=== PATIENT | male | born 1990 | race American Indian/Alaskan Native ===

== ENCOUNTER 2017-03-30 01:46 | Observation (INO) | payer MEDICAID ==
[2017-03-30] MEDS ORDERED: Sodium Chloride 0.9% 1,000 ML IV ONE ×2 (02:09→02:13)
[2017-03-30] MEDS ORDERED: DiphenhydrAMINE 50 mg/ml Inj IVP STA (02:15)
[2017-03-30] MEDS ORDERED: DiphenhydrAMINE 50 mg/ml Inj ONE (02:21)
[2017-03-30] MEDS ORDERED: Sodium Chloride 0.9% 2,000 ML ONE (02:44)
[2017-03-30 03:14] LABS: BASO # 0.2 K/uL (0.0-0.2); BASO % 1.3 % (0.0-2.0); EOS # 0.4 K/uL (0.0-0.7); EOS % 3.3 % (0.0-4.0); HEMOGLOBIN 8.4 g/dL (12.0-18.0); LYMPH # 5.4 K/uL (1.0-4.3); LYMPH % 44.2 % (20.0-40.0); MEAN CELL VOLUME 94.2 fL (80.0-94.0); MEAN CORPUSCULAR HEMOGLOBIN 33.7 pg (27.0-31.0); MEAN CORPUSCULAR HGB CONC 35.8 g/dL (33.0-37.0); MEAN PLATELET VOLUME 7.8 fL (7.2-11.7); MONO # 0.8 K/uL (0.0-0.8); MONO % 6.4 % (0.0-10.0); NEUT # 5.4 K/uL (1.8-7.0); NEUT % 44.8 % (50.0-75.0); NRBC % 0.4 % (0.0-2.0); RBC 2.5 Mil/uL (4.40-5.90); RED CELL DISTRIBUTION WIDTH 21.8 % (11.5-14.5); WHITE BLOOD COUNT 12.1 K/uL (4.8-10.8)
[2017-03-30 03:16] LABS: INR 1.1; PROTHROMBIN TIME 12.6 SECONDS (9.7-12.2)
[2017-03-30 03:18] LABS: ALBUMIN 4.1 g/dL (3.5-5.0)
[2017-03-30 03:21] LABS: ALB/GLOB RATIO 1.3 (1.0-2.1); ALT/SGPT 28 U/L (21-72); AST/SGOT 36 U/L (17-59); BLOOD UREA NITROGEN 11 mg/dL (9-20); CALCIUM 8.9 mg/dl (8.6-10.4); GFR AFRICAN-AMERICAN > 60; GFR NON-AFRICAN AMERICAN > 60
[2017-03-30 03:34] LABS: B-TYPE NATRIURETIC PEPTIDE 228 pg/mL (0-450)
--- NOTE | 2017-03-30 04:27 | C.PDOC ---
History Of Present Illness c/o typical sickle cell pain, back and thighs no pain meds @ home no pmd local Time Seen by Provider: 03/30/17 02:11 Chief Complaint (Nursing): Back Pain History Per: Patient History/Exam Limitations: no limitations Onset/Duration Of Symptoms: Days (x2) Current Symptoms Are (Timing): Still Present Quality Of Discomfort: Aching, "Pain" Severity: Moderate Pain Scale Rating Of: 7 Previous Symptoms: Back Pain, Other (thighs) Recent travel outside of the [place]: No Past Medical History Reviewed: Historical Data, Nursing Documentation, Vital Signs Vital Signs: Last Vital Signs Temp 97.7 F 03/30/17 01:48 Pulse 46 L 03/30/17 02:59 Resp 20 03/30/17 02:59 BP 111/60 03/30/17 02:59 Pulse Ox 100 03/30/17 02:59 - Medical History PMH: Sickle Cell Disease Surgical History: No Surg Hx Family History: States: Unknown Family Hx - Social History Hx Tobacco Use: Yes (some days) Hx Alcohol Use: Yes (social) Hx Substance Use: No - Immunization History Hx Tetanus Toxoid Vaccination: Yes Hx Influenza Vaccination: No Hx Pneumococcal Vaccination: No Review Of Systems Except As Marked, All Systems Reviewed And Found Negative. Physical Exam - Physical Exam Appears: In Acute Distress Skin: Normal Color, Other (pallid) Head: Atraumatic Eye(s): bilateral: Normal Inspection Throat: Normal Chest: Symmetrical Cardiovascular: Rhythm Regular Gastrointestinal/Abdominal: Normal Exam Rectal: Deferred Extremity: Normal ROM ED Course And Treatment - Laboratory Results Result Diagrams: 03/30/17 03:07 03/30/17 03:07 Lab Interpretation: Abnormal (basline labs and retic count 8.5) ECG: Interpreted By Me ECG Rhythm: Sinus Rhythm ECG Interpretation: Normal Rate From EC O2 Sat by Pulse Oximetry: 100 Pulse Ox Interpretation: Normal - Radiology CXR: Interpreted by Me CXR Interpretation: Yes: No Acute Disease Progress Note: 0215: one round of PO dilaudid, benadryl, motrin, reglan. 0315: sleeping comfortably Reevaluation Time: 04:30 Reassessment Condition: Improved (sleeping comfortably) - Physician Consult Information Outcome Of Conversation: 0430: communicated with Dr. Long- [employer] Operator- ok to med/Surg obs. Medical Decision Making Medical Decision Making: unclear why lost to f/u and no pain meds @ home [place], [place] Rx's for this pt though relieved pain with 1st round of pain meds, and labs @ baseline, pt should obs for further eval and proper dispo with proper f/u with PMD or Dr. Long- [employer] Operator. 0430: pending UA/UDS Disposition Doctor Will See Patient In The: Hospital Counseled Patient/Family Regarding: Studies Performed, Diagnosis - Disposition Referrals: Non [facility] Provider, [Primary Care Provider] - Disposition: HOSPITALIZED Disposition Time: 04:29 Condition: GOOD Forms: [facility] (Kosovan) - Clinical Impression Clinical Impression: Sickle cell anemia with crisis
--- NOTE | 2017-03-30 06:13 | PCM.RRTMUL ---
[employer] Nurses Assessment - Situation [employer] Reason for Call: Bradycardia, Hypotension CRACK[employer] MIXER Called By: RN - IV IV Inserted during CRACKER DOUGH MIXER?: No IV Fluids Initiated During CRACKER DOUGH MIXER?: Yes 1 L fluid bolus - Respiratory Oxygen Delivery Method:: Room Air (Patient refused oxygen via nasal canula ) Received Nebulizer Treatments:: No Was the Patient Ventilated with Bag/Mask 100% O2?: No Secretions Suctioned?: No Was the Patient Intubated?: No Was the Patient Placed on a Ventilator?: No - Diagnostic Test Ordered EKG:: Yes - Vital Signs Blood Pressure:: 107/54 Pulse Rate:: 48 Respiratory Rate:: 18 Temperature:: 97.5 F Oxygen Saturation:: 95 - Recommendations 5) CR[employer] M[employer]ER Level of Care Recommendations: Remain in current setting 6) Notifications: Attending Physician I.Reason for [employer]IXER - A) Acute Change in Patient: (Select all that apply): Staff member or family is worried about patient - A) Initial Vital Signs: Blood Pressure: 86/47 Pulse Rate: 40 Temperature: 97.5 F O2 Sat by Pulse Oximetry: 95 - B) Neurological Status (Select all that apply): Alert, Responsive, Follows Commands Other (Please specify): Agitated - C) Respiratory Oxygen Delivery Method: Room Air - Constitutional Appears: Non-toxic, No Acute Distress - Head Head Exam: ATRAUMATIC, NORMAL INSPECTION, NORMOCEPHALIC - Eyes Eye Exam: EOMI, Normal appearance - Respiratory Exam Respiratory Exam: NORMAL BREATHING PATTERN. absent: Wheezes - Cardiovascular Exam Cardiovascular Exam: Bradycardia, +S1, +S2 - GI/Abdominal Exam GI & Abdominal Exam: Soft, Normal Bowel Sounds - Neurological Exam Neurological Exam: Alert, Awake, Oriented x3 - Extremities Exam Extremities Exam: Full ROM Plan - A. End of [employer] MIXER Vital Signs: Blood Pressure: 99/58 Pulse Rate: 49 Temperature: 97.5 F O2 Sat by Pulse Oximetry: 96 - B. Assessment of Findings&Treatment Plan Rapid response called at 5:52AM for patient with hypotension and bradycardia. Patient arrived from ED minutes prior with complaints of back pain and leg pain secondary to sickle cell crises. Patient was administered 16mg of Dilaudid PO as well as reglan, 2 fluid boluses, benadryl and Motrin in the ED. Patient was then transferred up to the floor. Patient was noted to have the vitals mentioned above upon initial arrival on the floor. Patient remained awake, alert and oriented, however agitated. Repeat EKG was ordered. ALDEN was ordered in the ED a few hours prior and thus a repeat level was not ordered. Patient was administered a fluid bolus. At this time, it was requested that patient be placed on telemetry. A call was placed out to Dr. Long (Admitting doctor) with considerations for a Cardiology consult. Patient remained responsive throughout , though mildly agitated.
[2017-03-30] MEDS ORDERED: Sodium Chloride 0.9% 1,000 ML IV SCH ×3 (06:15→08:35)
--- NOTE | 2017-03-30 09:04 | RAD ---
PROCEDURE: CHEST RADIOGRAPH, 1 VIEW HISTORY: Shortness of breath COMPARISON: None available. FINDINGS: LUNGS: Diffuse increased interstitial lung markings. More patchy linear consolidative changes in the right midlung zone. PLEURA: No pneumothorax or pleural fluid seen. CARDIOVASCULAR: Mild cardiomegaly. OSSEOUS STRUCTURES: Patchy sclerosis which may represent underlying AVN of the bilateral proximal humeri. VISUALIZED UPPER ABDOMEN: Normal. OTHER FINDINGS: None. IMPRESSION: Diffuse increased interstitial lung markings. More patchy linear consolidative changes in the right midlung zone.
--- NOTE | 2017-03-30 10:52 | CARD ---
APPROVED REPORT EKG Measurement Heart [id number] 166P12 [id number] <Conclusion> Sinus bradycardia Otherwise normal ECG
[2017-03-30] MEDS: Sodium Chloride 0.9% 1,000 ML IV SCH ×2 (17:30→21:27)
--- NOTE | 2017-03-30 18:05 | CON ---
DATE: 03/30/2017 CARDIOLOGY CONSULTATION REASON FOR CONSULTATION: Sinus bradycardia. HISTORY OF PRESENT ILLNESS: The patient is 26 years old athletic, male, who has a history of sickle cell disease. He used to have sickle cell crisis in his childhood required blood transfusion as a child, but as a young adult, the patient has been doing okay, probably gets crisis once a year according to him. He presents because of bilateral leg pain. He denies any chest pain. The patient was noted too bradycardic on admission, the lowest heart rate on by the EMS was 37 beats per minute. The patient states that he has bradycardia from before and he does athletic activities including basketball and running. He has no limitation since his childhood from any physical activity. SOCIAL HISTORY: The patient is nonsmoker, nondrinker. He is currently unemployed. MEDICATIONS: Benadryl 25 mg p.o. q. 6 hours, normal saline 100 mL an hour, Dilaudid 2 mg p.o. q. 4 hours p.r.n. PHYSICAL EXAMINATION: GENERAL: The patient is a young middle-aged male, who does not appear to any distress. VITAL SIGNS: Blood pressure , heart rate 41, temperature 97.5, respirations 20. HEENT: Pale conjunctivae. CHEST: Clear. HEART: S1, S2 regular. EXTREMITIES: No edema. LABORATORY DATA: The patient is in normal limits except for carbon dioxide of 21 and anion gap of 21, 1 set of troponin is negative. TSH level is elevated at 6.81, INR is 1.1, PTT is 31. Hemoglobin and hematocrit 8.4 and 23.5, white count 12.1, platelet count 312,000. EKG revealed sinus bradycardia at the rate of 50. EKG from 05/2016 reveals sinus bradycardia at the rate of 55. EKG from 02/2015 reveals sinus bradycardia at the rate of 49. ASSESSMENT: 1. Sickle cell crisis with bilateral leg pain. 2. Asymptomatic sinus bradycardia, most likely related to the patient's athletic lifestyle. RECOMMENDATIONS: Continue current IV hydration as well as p.r.n. Dilaudid. Obtain free T4 and total T4 level to rule out possibility of hypothyroidism as the TSH level is mildly elevated. Obtain an echocardiogram. Juma Davies MD [facility] # [id number]
[2017-03-30 20:05] VITALS: RESP 20
--- NOTE | 2017-03-30 23:30 | CP.PCM.HP ---
History of Present Illness - History of Present Illness History of Present Illness: 26 Y/O WITH SCD AND HE IS ADMITTED WITH BACK AND NECK PAIN, NO COUGH, NO FEVER, NO SOB Present on Admission - Present on Admission Any Indicators Present on Admission: No History of DVT/PE: No History of Uncontrolled Diabetes: No Urinary Catheter: No Decubitus Ulcer Present: No Review of Systems - Review of Systems Systems not reviewed;Unavailable: Acuity of Condition - Constitutional Constitutional: Daytime Sleepiness - Cardiovascular Cardiovascular: Slow Heart Rate Past Patient History - Infectious Disease Hx of Infectious Diseases: None - Past Medical History & Family History Past Medical History?: Yes - Past Social History Smoking Status: Current Some Days Smoker - CARDIAC Hx Cardiac Disorders: Yes Other/Comment: bradycardia - PULMONARY Hx Respiratory Disorders: No - NEUROLOGICAL Hx Neurological Disorder: No - HEENT Hx HEENT Problems: No - ENDOCRINE/METABOLIC Hx Endocrine Disorders: No - HEMATOLOGICAL/ONCOLOGICAL Hx Sickle Cell Disease: Yes - INTEGUMENTARY Hx Dermatological Problems: No - MUSCULOSKELETAL/RHEUMATOLOGICAL Hx Falls: No - GASTROINTESTINAL Hx Gastrointestinal Disorders: No - GENITOURINARY/GYNECOLOGICAL Hx Genitourinary Disorders: No - PSYCHIATRIC Hx Substance Use: No - SURGICAL HISTORY Hx Surgeries: No - ANESTHESIA Hx Anesthesia: No Meds Allergies/Adverse Reactions: Allergies Allergy/AdvReac Type Severity Reaction Status Date / Time No Known Allergies Allergy Unverified 03/30/17 01:47 Physical Exam - Constitutional Appears: Non-toxic, No Acute Distress - Head Exam Head Exam: ATRAUMATIC, NORMAL INSPECTION, NORMOCEPHALIC - Eye Exam Eye Exam: EOMI, Normal appearance, PERRL Pupil Exam: NORMAL ACCOMODATION - ENT Exam ENT Exam: Mucous Membranes Moist, Normal Exam - Neck Exam Neck exam: Positive for: Normal Inspection - Respiratory Exam Respiratory Exam: Clear to Auscultation Bilateral, NORMAL BREATHING PATTERN - Cardiovascular Exam Cardiovascular Exam: Bradycardia, REGULAR RHYTHM, +S1, +S2 - GI/Abdominal Exam GI & Abdominal Exam: Normal Bowel Sounds - Rectal Exam Rectal Exam: NORMAL INSPECTION - Exam Exam: NORMAL INSPECTION - Extremities Exam Extremities exam: Positive for: normal inspection - Back Exam Back exam: NORMAL INSPECTION - Neurological Exam Neurological exam: Alert, CN II-XII Intact, Normal Gait, Oriented x3, Reflexes Normal Results - Vital Signs Recent Vital Signs: Last Vital Signs Temp 98.2 F 03/30/17 20:04 Pulse 45 L 03/30/17 20:04 Resp 20 03/30/17 20:04 BP 102/54 L 03/30/17 20:04 Pulse Ox 97 03/30/17 20:04 - Labs Result Diagrams: 03/30/17 03:07 03/30/17 03:07 Assessment & Plan (1) Bradycardia Status: Acute Priority: High (2) Dehydration Status: Acute Priority: High (3) Sickle cell anemia with crisis Status: Acute Priority: High
[2017-03-31 01:49] VITALS: BP 108/60; PULSE 49; TEMP 98.4; O2SAT 98
--- NOTE | 2017-03-31 23:54 | CP.PCM.DIS ---
Provider - Provider Date of Admission: 03/30/17 04:23 Attending physician: Jt Long MD Primary care physician: Non [facility] Provider Diagnosis - Discharge Diagnosis (1) Bradycardia Status: Acute Priority: High (2) Dehydration Status: Acute Priority: High (3) Sickle cell anemia with crisis Status: Acute Priority: High Hospital Course - Lab Results Lab Results: Most Recent Lab Values WBC 12.1 K/uL (4.8-10.8) H 03/30/17 03:07 RBC 2.50 Mil/uL (4.40-5.90) L 03/30/17 03:07 Hgb 8.4 g/dL (12.0-18.0) L 03/30/17 03:07 Hct 23.5 % (35.0-51.0) L 03/30/17 03:07 MCV 94.2 fL (80.0-94.0) H 03/30/17 03:07 MCH 33.7 pg (27.0-31.0) H 03/30/17 03:07 MCHC 35.8 g/dL (33.0-37.0) 03/30/17 03:07 RDW 21.8 % (11.5-14.5) H 03/30/17 03:07 Plt Count 312 K/uL (130-400) 03/30/17 03:07 MPV 7.8 fL (7.2-11.7) 03/30/17 03:07 Neut % (Auto) 44.8 % (50.0-75.0) L 03/30/17 03:07 Lymph % (Auto) 44.2 % (20.0-40.0) H 03/30/17 03:07 [place] % (Auto) 6.4 % (0.0-10.0) 03/30/17 03:07 Eos % (Auto) 3.3 % (0.0-4.0) 03/30/17 03:07 Baso % (Auto) 1.3 % (0.0-2.0) 03/30/17 03:07 Neut # 5.4 K/uL (1.8-7.0) 03/30/17 03:07 Lymph # 5.4 K/uL (1.0-4.3) H 03/30/17 03:07 [place] # 0.8 K/uL (0.0-0.8) 03/30/17 03:07 Eos # 0.4 K/uL (0.0-0.7) 03/30/17 03:07 Baso # 0.2 K/uL (0.0-0.2) 03/30/17 03:07 Retic Count 8.5 % (0.5-1.5) H D 03/30/17 03:07 PT 12.6 SECONDS (9.7-12.2) H 03/30/17 03:07 INR 1.1 03/30/17 03:07 APTT 31 SECONDS (21-34) 03/30/17 03:07 Sodium 142 mmol/L (132-148) 03/30/17 03:07 Potassium 3.6 mmol/L (3.6-5.2) 03/30/17 03:07 Chloride 104 mmol/L (98-107) 03/30/17 03:07 Carbon Dioxide 21 mmol/L (22-30) L 03/30/17 03:07 Anion Gap 21 (10-20) H 03/30/17 03:07 BUN 11 mg/dL (9-20) 03/30/17 03:07 Creatinine 0.8 MG/DL (0.8-1.5) 03/30/17 03:07 Est GFR ( Amer) > 60 03/30/17 03:07 Est GFR (Non-Af Amer) > 60 03/30/17 03:07 Random Glucose 86 mg/dL (75-110) 03/30/17 03:07 Calcium 8.9 mg/dl (8.6-10.4) 03/30/17 03:07 Total Bilirubin 2.2 mg/dL (0.2-1.3) H 03/30/17 03:07 AST 36 U/L (17-59) 03/30/17 03:07 ALT 28 U/L (21-72) 03/30/17 03:07 Alkaline Phosphatase 79 U/L (38-126) 03/30/17 03:07 Troponin I < 0.0120 ng/mL (0.00-0.120) 03/30/17 03:07 NT-Pro-B Natriuret Pep 228 pg/mL (0-450) 03/30/17 03:07 Total Protein 7.3 g/dL (6.3-8.3) 03/30/17 03:07 Albumin 4.1 g/dL (3.5-5.0) 03/30/17 03:07 Globulin 3.1 gm/dL (2.2-3.9) 03/30/17 03:07 Albumin/Globulin Ratio 1.3 (1.0-2.1) 03/30/17 03:07 TSH 3rd Generation 6.81 mIU/L (0.46-4.68) H 03/30/17 03:07 - Hospital Course Hospital Course: ADMITTED WITH SCD AND PAIN, AND HE DID WELL WITH IVF AND ORAL PAIN MEDS IS FOR DISCHARGE Discharge Exam - Head Exam Head Exam: ATRAUMATIC, NORMAL INSPECTION, NORMOCEPHALIC - Eye Exam Eye Exam: EOMI, Normal appearance, PERRL Pupil Exam: NORMAL ACCOMODATION - ENT Exam ENT Exam: Mucous Membranes Moist, Normal Exam, Normal Oropharynx, TM's Normal Bilaterally - Neck Exam Neck exam: Normal Inspection - GI/Abdominal Exam GI & Abdominal Exam: Normal Bowel Sounds, Unremarkable - Rectal Exam Rectal Exam: NORMAL INSPECTION - Neurological Exam Neurological exam: Alert, CN II-XII Intact, Normal Gait, Oriented x3, Reflexes Normal - Psychiatric Exam Psychiatric exam: Normal Mood Discharge Plan - Follow Up Plan Condition: GOOD Disposition: AGAINST MEDICAL ADVICE Referrals: Non [facility] Provider, [Primary Care Provider] -
--- NOTE | 2017-04-01 19:30 | CARD ---
APPROVED REPORT EKG Measurement Heart [id number] NE 180P12 [id number] <Conclusion> Marked sinus bradycardia with sinus arrhythmia RSR' or QR pattern in V1 suggests right ventricular conduction delay Nonspecific ST abnormality Abnormal ECG
== END 2017-03-31 00:15 | disposition left against medical advice (07) ==
LOC: SUPCPDRO 01:46 → C.ER 01:46 → C.6T 04:23
PROVIDERS: ADMIT Internal Medicine; ATTEND Internal Medicine
DX: D57.00 Hb-SS disease with crisis, unspecified (principal); E86.0 Dehydration; F17.200 Nicotine dependence, unspecified, uncomplicated
CPT/HCPCS: 71010; 80053; 83880; 84443; 84484; 85025; 85044; 85610; 85730; 93005; 96361; 96374; 96375; 99285; G0378; J1200; J2405; J2765; J7040

== ENCOUNTER 2017-10-20 07:45 | Emergency (ER) | payer MEDICAID ==
[2017-10-20 07:56] VITALS: BMI 21.8
[2017-10-20] MEDS ORDERED: Sodium Chloride 0.9% 1,000 ML IV ONE (08:53)
[2017-10-20] MEDS ORDERED: DiphenhydrAMINE 50 mg/ml Inj IVP STA ×2 (08:53→12:20)
[2017-10-20] MEDS ORDERED: DiphenhydrAMINE 50 mg/ml Inj ONE ×2 (09:38→12:39)
[2017-10-20] MEDS ORDERED: Sodium Chloride 0.9% 1,000 ML ONE (09:39)
[2017-10-20 09:40] LABS: BASO # 0.1 K/uL (0.0-0.2); BASO % 0.7 % (0.0-2.0); EOS # 0.1 K/uL (0.0-0.7); HEMOGLOBIN 8.3 g/dL (12.0-18.0); LYMPH # 1.8 K/uL (1.0-4.3); LYMPH % 13.8 % (20.0-40.0); MEAN CORPUSCULAR HEMOGLOBIN 35.1 pg (27.0-31.0); MEAN CORPUSCULAR HGB CONC 35.6 g/dL (33.0-37.0); MEAN PLATELET VOLUME 7.3 fL (7.2-11.7); MONO # 1.2 K/uL (0.0-0.8); MONO % 9.3 % (0.0-10.0); NEUT # 9.7 K/uL (1.8-7.0); NEUT % 75.2 % (50.0-75.0); NRBC % 0.4 % (0.0-2.0); RBC 2.38 Mil/uL (4.40-5.90); RED CELL DISTRIBUTION WIDTH 21.7 % (11.5-14.5)
[2017-10-20 09:42] LABS: MEAN CELL VOLUME 98.6 fL (80.0-94.0)
[2017-10-20 09:50] LABS: ALB/GLOB RATIO 1.4 (1.0-2.1); ALT/SGPT 24 U/L (21-72); AST/SGOT 23 U/L (17-59); BLOOD UREA NITROGEN 4 mg/dL (9-20); CALCIUM 8.8 mg/dl (8.6-10.4); GFR AFRICAN-AMERICAN > 60; GFR NON-AFRICAN AMERICAN > 60
--- NOTE | 2017-10-20 10:31 | C.PDOC ---
History Of Present Illness 27-year-old male, PMHx includes presents to the emergency department with complaints of pain in left leg that started yesterday. Patient reports that when he has his sickle cell crisis it causes pain in the bilateral legs but this time it's only in the left side. Patient denies trauma, fall, numbness/ weakness, chest pain, shortness of breath, or any other associated symptoms. Time Seen by Provider: 10/20/17 08:23 Chief Complaint (Nursing): Lower Extremity Problem/Injury History Per: Patient History/Exam Limitations: no limitations Past Medical History Reviewed: Historical Data, Nursing Documentation, Vital Signs Vital Signs: Last Vital Signs Temp 98.6 F 10/20/17 15:01 Pulse 59 L 10/20/17 15:01 Resp 20 10/20/17 15:01 BP 126/76 10/20/17 15:01 Pulse Ox 97 10/22/17 15:01 - Medical History PMH: Sickle Cell Disease Family History: States: No Known Family Hx - Social History Hx Tobacco Use: Yes (some days) Hx Alcohol Use: (social) Hx Substance Use: No - Immunization History Hx Tetanus Toxoid Vaccination: Yes Hx Influenza Vaccination: Yes Hx Pneumococcal Vaccination: No Review Of Systems Musculoskeletal: Positive for: Leg Pain Neurological: Negative for: Weakness, Numbness Physical Exam - Physical Exam Appears: Well, Non-toxic, No Acute Distress Skin: Normal Color, Warm, Dry, No Rash Head: Normacephalic Neck: Normal ROM Chest: Symmetrical Cardiovascular: Rhythm Regular, No Murmur Respiratory: Normal Breath Sounds, No Accessory Muscle Use Extremity: No Tenderness, Capillary Refill (<2 seconds), No Deformity, No Swelling Neurological/Psych: Oriented x3, Normal Speech ED Course And Treatment - Laboratory Results Result Diagrams: 10/20/17 09:34 10/20/17 09:34 O2 Sat by Pulse Oximetry: 97 (RA) Pulse Ox Interpretation: Normal Progress Note: Bloodwork ordered and reviewed. Sickle cell protocol ordered. Medical Decision Making Medical Decision Making: Venous doppler was performed and is negative for DVT. PAtient labs are at his baseline. The patient was offered admission but states he feels improvement and wishes to be discharged home for outpatient follow up. On re-exam, the patient reports improvement of symptoms. Lungs are CTA, heart is RRR, abdomen is soft, non-tender and tolerating PO well. Ambulatory in the ED with steady gait. Follow up with the medical doctor within 1-2 days. Return if worsened. Disposition - Disposition Referrals: [facility] [Outside] Disposition: HOME/ ROUTINE Disposition Time: 14:53 Condition: FAIR Additional Instructions: Follow up with the medical doctor within 1-2 days. Return if worsened. Instructions: Sickle Cell Disease, Muscle and Bone Pain (DC) Forms: Written (Greenlandic) - POA Present On Arrival: None - Clinical Impression Clinical Impression: Sickle cell anemia, Leg pain - PA / FORENSIC INVESTIGATOR / Resident Statement MD/DO has reviewed & agrees with the documentation as recorded. - Scribe Statement All medical record entries made by the Scribnatanael were at my direction and personally dictated by me. I have reviewed the chart and agree that the record accurately reflects my personal performance of the history, physical exam, medical decision making, and the department course for this patient. I have also personally directed, reviewed, and agree with the discharge instructions and disposition.
[2017-10-20] MEDS ORDERED: HYDROmorphone 1 mg/ml ISec IVP STA (12:20)
[2017-10-20] MEDS ORDERED: Potassium Chloride 20 mEq/15 ml LIQ UD PO STA (14:26)
[2017-10-20 15:02] VITALS: BP 126/76; PULSE 59; RESP 20; TEMP 98.6
[2017-10-20] MEDS ORDERED: Potassium Chloride 20 mEq/15 ml LIQ UD ONE (15:11)
--- NOTE | 2017-10-21 13:50 | VASCLAB ---
PROCEDURE: Left Lower Extremity Venous Duplex Exam. HISTORY: leg pain r/o DVT PRIORS: None. TECHNIQUE: Left common femoral, femoral, popliteal and posterior tibial, peroneal and great saphenous veins were evaluated. Flow was assessed with color Doppler, compressibility, assessment of phasic flow and augmentation response. Report prepared by RICKEY Raya, RVT FINDINGS: LEFT: 1. Common Femoral Vein: 1.1. Compressibility - Fully compressible: Thrombus - None : Flow - Phasic: Augmentation -Normal: Reflux - None. 2. Femoral Vein: 2.1. Compressibility - Fully compressible: Thrombus - None: Flow - Phasic: Augmentation -Normal: Reflux - None. 3. Popliteal Vein: 3.1. Compressibility - Fully compressible: Thrombus - None: Flow - Phasic: Augmentation -Normal: Reflux - None. 4. Posterior Tibial Vein: 4.1. Compressibility - Fully compressible: Thrombus - None: Flow - Phasic: Augmentation -Normal: Reflux - None. 5. Peroneal Vein: 5.1. Compressibility - Fully compressible: Thrombus - None: Flow - Phasic: Augmentation -Normal: Reflux - None. 6. Great Saphenous Vein: 6.1. Compressibility - Fully compressible: Thrombus - None: Flow - Phasic: Augmentation - Normal: Reflux - None. OTHER FINDINGS: IMPRESSION: No evidence of deep or superficial vein thrombosis of the left lower extremity with excellent venous flow. Normal valve function noted of the left side. Normal venous flow noted in the right common femoral vein.
[2017-10-22 14:58] VITALS: O2SAT 97
== END 2017-10-20 15:36 | disposition home or self-care (01) ==
LOC: C.ER 07:45
DX: M79.604 Pain in right leg (principal); D57.1 Sickle-cell disease without crisis; Z72.0 Tobacco use
CPT/HCPCS: 80053; 85025; 85044; 93971; 96361; 96374; 96375; 96376; 99284; J1170; J1200; J1885; J2765; J7040

== ENCOUNTER 2017-12-01 15:52 | Emergency (ER) | payer MEDICAID, OTHER ==
[2017-12-01 16:08] VITALS: BMI 20.5
--- NOTE | 2017-12-01 17:07 | C.PDOC ---
History Of Present Illness <BuckTony Jasen - Last Filed: 12/01/17 18:32> <Jet Motley - Last Filed: 12/01/17 23:02> 27 y/o M c PMHx sickle cell anemia p/w sickle cell pain crisis x 4 days. Reports pain to chest, back, extremities, which patient states is typical of his pain crisis. He reports fever on Day 1, since then resolved. He denies cough , vomiting, diarrhea. Patient states he spent the last 4 days in the hospital at [facility] getting treated with IVF and pain medication and was told that he "was fine, but I'm not fine." He denies receiving a blood transfusion, stating that if he received a blood transfusion, he'd probably be . When I asked why that would be the case, he asked how you would get a blood transfusion, and I stated that you would get blood given to you through an IV, and he responded that it would have to match his blood type but he does not know his blood type. (Tony Jane) <Tony Jane - Last Filed: 12/01/17 18:32> <Jet Motley - Last Filed: 12/01/17 23:02> Time Seen by Provider: 12/01/17 16:41 Chief Complaint (Nursing): Pain, Chronic Past Medical History - Medical History PMH: Sickle Cell Disease Family History: States: Unknown Family Hx - Social History Hx Tobacco Use: Yes (some days) Hx Alcohol Use: No (social) Hx Substance Use: No - Immunization History Hx Tetanus Toxoid Vaccination: Yes Hx Influenza Vaccination: No Hx Pneumococcal Vaccination: No <Tony Jane - Last Filed: 12/01/17 18:32> Vital Signs: Last Vital Signs Temp 99.2 F 12/01/17 18:31 Pulse 66 12/01/17 20:18 Resp 20 12/01/17 20:18 BP 117/63 12/01/17 20:18 Pulse Ox 95 12/01/17 20:18 Review Of Systems Except As Marked, All Systems Reviewed And Found Negative. Gastrointestinal: Negative for: Vomiting Skin: Negative for: Rash <Tony Jane - Last Filed: 12/01/17 18:32> Physical Exam <Tony Jane - Last Filed: 12/01/17 18:32> <Jet Motley - Last Filed: 12/01/17 23:02> - Physical Exam Additional Physical Exam Comments: Gen: NAD Head: NC Eyes: No scleral icterus ENT: MMM Neck: Supple Chest: No tenderness CV: Regular rate Lungs: CTA b/l Abd: Soft Extremities: No swelling Skin: No rash Neuro: Alert, no focal deficit (Tony Jane) ED Course And Treatment - Laboratory Results Result Diagrams: 12/01/17 17:17 12/01/17 17:17 O2 Sat by Pulse Oximetry: 100 <Tony Jane - Last Filed: 12/01/17 18:32> - Laboratory Results Result Diagrams: 12/01/17 17:17 12/01/17 17:17 Pulse Ox Interpretation: Normal Progress Note: pt's blood work is similar to the one from [facility] . Pt is pain free and wants to go home Reevaluation Time: 22:58 Reassessment Condition: Improved <Jet Motley - Last Filed: 12/01/17 23:02> Medical Decision Making <Tony Jane - Last Filed: 12/01/17 18:32> <Jet Motley - Last Filed: 12/01/17 23:02> Medical Decision Making: Patient in no acute distress and vital signs normal and treated as inpatient for the 4 days. Will start PO pain management protocol. FINDINGS: LUNGS: No active pulmonary disease. PLEURA: No significant pleural effusion identified. No pneumothorax apparent. CARDIOVASCULAR: Normal. OSSEOUS STRUCTURES: No significant abnormalities. VISUALIZED UPPER ABDOMEN: Normal. OTHER FINDINGS: None. IMPRESSION: No active disease. No significant interval change compared to the prior examination(s). Called [facility], patient was there less than 48 hours, Hb was 8.8, retic count 7, bili 2.6, WBC 12.5, largely unchanged. Patient states pain has not improved at all after 1 pain dose, 2nd dose ordered. Will reassess again 1 hour after according to PO pain protocol. Will sign out to ED night team pending pain reassessment. (Tony Jane) Disposition <Tony Jane - Last Filed: 12/01/17 18:32> Counseled Patient/Family Regarding: Studies Performed, Diagnosis, Need For Followup - Disposition Disposition Time: 22:58 <Jet Motley - Last Filed: 12/01/17 23:02> - Disposition Referrals: [facility] [Outside] Disposition: HOME/ ROUTINE Condition: FAIR Prescriptions: traMADol [Ultram] 50 mg PO QID PRN #15 tab PRN Reason: Pain, Severe (8-10) Instructions: Sickle Cell Disease (DC) Forms: [employer] ([place] Islander) - Clinical Impression Clinical Impression: Sickle cell anemia
[2017-12-01 17:24] LABS: BASO # 0.1 K/uL (0.0-0.2); BASO % 0.7 % (0.0-2.0); EOS # 0.1 K/uL (0.0-0.7); EOS % 0.6 % (0.0-4.0); HEMOGLOBIN 8.6 g/dL (12.0-18.0); LYMPH # 1.7 K/uL (1.0-4.3); MEAN CELL VOLUME 98.5 fL (80.0-94.0); MEAN CORPUSCULAR HEMOGLOBIN 34.9 pg (27.0-31.0); MEAN CORPUSCULAR HGB CONC 35.4 g/dL (33.0-37.0); MEAN PLATELET VOLUME 7.6 fL (7.2-11.7); MONO # 1.6 K/uL (0.0-0.8); MONO % 10.7 % (0.0-10.0); NEUT # 11.7 K/uL (1.8-7.0); RBC 2.48 Mil/uL (4.40-5.90); RED CELL DISTRIBUTION WIDTH 19.4 % (11.5-14.5); WHITE BLOOD COUNT 15.2 K/uL (4.8-10.8)
[2017-12-01 17:33] LABS: ALB/GLOB RATIO 1.2 (1.0-2.1); ALBUMIN 4.8 g/dL (3.5-5.0); ALT/SGPT 21 U/L (21-72); AST/SGOT 31 U/L (17-59); BLOOD UREA NITROGEN 9 mg/dL (9-20); CALCIUM 9.2 mg/dl (8.6-10.4); GFR AFRICAN-AMERICAN > 60; GFR NON-AFRICAN AMERICAN > 60
--- NOTE | 2017-12-01 18:03 | RAD ---
HISTORY: sickle cell crisis COMPARISON: 03/30/2017 TECHNIQUE: Chest PA and lateral FINDINGS: LUNGS: No active pulmonary disease. PLEURA: No significant pleural effusion identified. No pneumothorax apparent. CARDIOVASCULAR: Normal. OSSEOUS STRUCTURES: No significant abnormalities. VISUALIZED UPPER ABDOMEN: Normal. OTHER FINDINGS: None. IMPRESSION: No active disease. No significant interval change compared to the prior examination(s).
[2017-12-01] MEDS ORDERED: Sodium Chloride 0.9% 1,000 ML IV ONE (21:23)
[2017-12-01 23:14] VITALS: BP 128/70; PULSE 68; RESP 18; TEMP 98; O2SAT 96
== END 2017-12-01 23:10 | disposition home or self-care (01) ==
LOC: C.ER 15:52
DX: D57.1 Sickle-cell disease without crisis (principal)
CPT/HCPCS: 71046; 80053; 85025; 85044; 96360; 99285; J7040

== ENCOUNTER 2017-12-12 10:18 | Emergency (ER) | payer OTHER ==
[2017-12-12 10:18] VITALS: BMI 20.5
[2017-12-12 10:29] VITALS: RESP 18; O2SAT 100
[2017-12-12] MEDS ORDERED: Sodium Chloride 0.9% 1,000 ML IV ONE (10:56)
[2017-12-12 11:17] LABS: BASO # 0.2 K/uL (0.0-0.2); BASO % 1.2 % (0.0-2.0); EOS # 0.4 K/uL (0.0-0.7); LYMPH # 3.8 K/uL (1.0-4.3); MEAN CELL VOLUME 97.3 fL (80.0-94.0); MEAN CORPUSCULAR HEMOGLOBIN 33.8 pg (27.0-31.0); MEAN CORPUSCULAR HGB CONC 34.7 g/dL (33.0-37.0); MEAN PLATELET VOLUME 7.3 fL (7.2-11.7); MONO # 1.4 K/uL (0.0-0.8); MONO % 9.7 % (0.0-10.0); NEUT # 8.2 K/uL (1.8-7.0); NEUT % 59.1 % (50.0-75.0); RBC 2.38 Mil/uL (4.40-5.90); RED CELL DISTRIBUTION WIDTH 22.2 % (11.5-14.5); WHITE BLOOD COUNT 13.9 K/uL (4.8-10.8)
[2017-12-12 11:39] LABS: ALB/GLOB RATIO 1.1 (1.0-2.1); ALBUMIN 3.9 g/dL (3.5-5.0); ALT/SGPT 29 U/L (21-72); AST/SGOT 47 U/L (17-59); BLOOD UREA NITROGEN 6 mg/dL (9-20); CALCIUM 8.8 mg/dl (8.6-10.4); GFR AFRICAN-AMERICAN > 60; GFR NON-AFRICAN AMERICAN > 60; LIPASE 95 U/L (23-300)
[2017-12-12 14:18] VITALS: BP 118/64; PULSE 72; TEMP 98
--- NOTE | 2017-12-12 15:42 | C.PDOC ---
History Of Present Illness 27 year old male, whose PMHx includes sickle cell disease, presents to the ED with c/o typical sickle cell symptoms such as pain to his legs, back and abdominal region. Patient denies fever, chills, shortness of breath. PMD: none Chief Complaint (Nursing): Medical Clearance History Per: Patient History/Exam Limitations: no limitations Onset/Duration Of Symptoms: Hrs Current Symptoms Are (Timing): Still Present Additional History Per: Patient Past Medical History Reviewed: Historical Data, Nursing Documentation, Vital Signs Vital Signs: Last Vital Signs Temp 98.0 F 12/12/17 14:17 Pulse 72 12/12/17 14:17 Resp 18 12/12/17 14:17 BP 118/64 12/12/17 14:17 Pulse Ox 100 12/12/17 16:06 - Medical History PMH: Sickle Cell Disease Surgical History: No Surg Hx Family History: States: Unknown Family Hx - Social History Hx Tobacco Use: Yes (some days) Hx Alcohol Use: No (social) Hx Substance Use: No - Immunization History Hx Tetanus Toxoid Vaccination: Yes Hx Influenza Vaccination: No Hx Pneumococcal Vaccination: No Review Of Systems Constitutional: Negative for: Fever, Chills Respiratory: Negative for: Shortness of Breath Gastrointestinal: Positive for: Abdominal Pain Musculoskeletal: Positive for: Back Pain, Leg Pain Physical Exam - Physical Exam Appears: Non-toxic, No Acute Distress Skin: Normal Color, Warm, Dry Head: Atraumatic, Normacephalic Eye(s): bilateral: Normal Inspection Oral Mucosa: Moist Neck: Supple Chest: Symmetrical, No Deformity, No Tenderness Cardiovascular: Rhythm Regular, No Murmur Respiratory: Normal Breath Sounds, No Rales, No Rhonchi, No Wheezing Gastrointestinal/Abdominal: Soft, No Tenderness, No Guarding, No Rebound Back: Normal Inspection, No Vertebral Tenderness, No Paraspinal Tenderness Extremity: Normal ROM, Capillary Refill (less than 2 seconds ) Neurological/Psych: Oriented x3, Normal Speech, Normal Cognition ED Course And Treatment - Laboratory Results Result Diagrams: 12/12/17 11:10 12/12/17 11:10 O2 Sat by Pulse Oximetry: 100 (on RA) Pulse Ox Interpretation: Normal Medical Decision Making Medical Decision Making: Impression: 27 year old male with typical sickle cell symptoms Plan: * bloodwork * Benadryl PO * Dilaudid PO * Motrin PO * IV Fluids * reassess and disposition Progress: Bloodwork ordered and reviewed. Benadryl PO, Dilaudid PO, Motrin PO and IV Fluids administered. On reassessment, patient is resting comfortably, showing no signs of distress and reports an improvement in his symptoms. Patient is stable for discharge and is advised to follow up with his PMD within 1-2 days for further evaluation and/ or return to the ED for further evaluation. Disposition - Disposition Referrals: [facility] [Outside] [facility] [Outside] Disposition: HOME/ ROUTINE Disposition Time: 14:00 Condition: GOOD Additional Instructions: Thank you for letting us take care of you today. The emergency medical care you received today was directed at your acute symptoms. If you were prescribed any medication, please fill it and take as directed. It may take several days for your symptoms to resolve. Return to the Emergency Department if your symptoms worsen, do not improve, or if you have any other problems. Please contact your doctor or call one of the physicians/clinics you have been referred to that are listed on the Patient Visit Information form that is included in your discharge packet. Bring any paperwork you were given at discharge with you along with any medications you are taking to your follow up visit. Our treatment cannot replace ongoing medical care by a primary care provider (PCP) outside of the emergency department. Thank you for allowing the [facility] team to be part of your care today. Follow up with the clinic in 2 days for re-evaluation and further management. You will need to follow up for more pain medication. Prescriptions: traMADol [Ultram] 50 mg PO Q8 PRN #15 tab PRN Reason: Pain, Severe (8-10) Instructions: Sickle Cell Disease (DC) Forms: [employer] ([place]uneian) - Clinical Impression Clinical Impression: Sickle cell anemia with pain - Scribe Statement The provider has reviewed the documentation as recorded by the Scribe (Esther Lyman) Provider Attestation: All medical record entries made by the Scribe were at my direction and personally dictated by me. I have reviewed the chart and agree that the record accurately reflects my personal performance of the history, physical exam, medical decision making, and the department course for this patient. I have also personally directed, reviewed, and agree with the discharge instructions and disposition.
== END 2017-12-12 14:46 | disposition home or self-care (01) ==
LOC: C.ER 10:18
DX: D57.1 Sickle-cell disease without crisis (principal); Z72.0 Tobacco use
CPT/HCPCS: 80053; 83690; 85025; 85044; 96360; 99283; J7040

== ENCOUNTER 2018-02-16 19:27 | Emergency (ER) | payer OTHER ==
[2018-02-16 19:28] VITALS: BMI 20.5
--- NOTE | 2018-02-16 23:59 | C.PDOC ---
Time Seen by Provider: 02/16/18 20:31 Chief Complaint (Nursing): Lower Extremity Problem/Injury History Per: Patient Onset/Duration Of Symptoms: Hrs (today) Current Symptoms Are (Timing): Still Present Severity: Severe Context: Sickle Cell Disease Location: b/l lower extremities Quality: Pain Reports Similar Symptoms Of: Sickle cell pain Reports Recent Trauma: Denies Additional History Per: Prior Records Past Medical History Reviewed: Historical Data, Nursing Documentation, Vital Signs Vital Signs: Last Vital Signs Temp 97.8 F 02/16/18 19:31 Pulse 84 02/16/18 19:31 Resp 16 02/16/18 19:31 BP 113/55 L 02/16/18 19:31 Pulse Ox 100 02/16/18 19:31 - Medical History PMH: Sickle Cell Disease Family History: States: Unknown Family Hx - Social History Hx Tobacco Use: Yes (some days) Hx Alcohol Use: No (social) Hx Substance Use: No - Immunization History Hx Tetanus Toxoid Vaccination: Yes Hx Influenza Vaccination: No Hx Pneumococcal Vaccination: No Review Of Systems Except As Marked, All Systems Reviewed And Found Negative. Constitutional: Negative for: Fever, Weakness Cardiovascular: Negative for: Chest Pain Respiratory: Negative for: Shortness of Breath Gastrointestinal: Negative for: Vomiting, Abdominal Pain Musculoskeletal: Positive for: Leg Pain. Negative for: Neck Pain, Back Pain Skin: Negative for: Rash Neurological: Negative for: Weakness, Numbness Physical Exam - Physical Exam Appears: Non-toxic, No Acute Distress Skin: Normal Color, Warm, Dry, No Rash Head: Atraumatic, Normacephalic Eye(s): bilateral: PERRL, EOMI Neck: Normal ROM, Supple Cardiovascular: Rhythm Regular Respiratory: Normal Breath Sounds, No Accessory Muscle Use Gastrointestinal/Abdominal: Soft, No Tenderness Back: No Vertebral Tenderness Extremity: Normal ROM, Capillary Refill (wnl), No Deformity, No Swelling Extremity: Bilateral: Normal Color And Temperature Pulses: Left Dorsalis Pedis: Normal, Right Dorsalis Pedis: Normal Neurological/Psych: Oriented x3, Normal Motor, Normal Sensation ED Course And Treatment O2 Sat by Pulse Oximetry: 100 Pulse Ox Interpretation: Normal Progress - Interventions Interventions:: Observation - Medications Administered Oral: Antiemetic, Antihistamine(H-1), NSAID, Opiate - Data Reviewed Data Reviewed: Old records - Patient Status Patient status: Mostly improved - Continuity of Care Discussed patient case with:: Patient, ED Nurse - Patient Plan Patient Plan: Discharge, F/U with PCP Disposition Counseled Patient/Family Regarding: Studies Performed, Diagnosis, Need For Followup, Rx Given - Disposition Disposition: HOME/ ROUTINE Disposition Time: 23:59 Condition: IMPROVED Additional Instructions: Follow up with your doctor within 2 days. Drink plenty of fluids. Return to the ER if you develop fever, redness, swelling, weakness, numbness, worsening of symptoms or if you have any other concerns. Prescriptions: oxyCODONE/Acetaminophen [Percocet 5/325 mg Tab] 1 tab PO Q4 PRN #20 tab PRN Reason: Pain, Severe (8-10) Instructions: Sickle Cell Disease (DC) - Clinical Impression Clinical Impression: Sickle-cell disease with pain
[2018-02-17 00:18] VITALS: BP 109/60; PULSE 60; RESP 18; TEMP 98.2; O2SAT 99
== END 2018-02-17 00:18 | disposition home or self-care (01) ==
LOC: C.ER 19:27
DX: D57.00 Hb-SS disease with crisis, unspecified (principal); Z72.0 Tobacco use